=== PATIENT | male | born 1985 | race Caucasian/White ===

== ENCOUNTER 2021-10-08 19:08 | Emergency (ER) | payer OTHER, BC | END 2021-10-08 21:15 | disposition home or self-care (01) | LOC: JD.ED 19:08 | DX: T20.19XA Burn of first degree of multiple sites of head, face, and neck, initial encounter (principal); F17.210 Nicotine dependence, cigarettes, uncomplicated; W89.9XXA Exposure to unspecified man-made visible and ultraviolet light, initial encounter | CPT/HCPCS: 99283 ==